=== PATIENT | male | born 1950 | race Hispanic/Latino ===

== ENCOUNTER → 2019-11-29 | Outpatient (CLI) | payer MEDICARE ==
--- NOTE | 2019-11-29 12:01 | Diagnostic Imaging Report ---
TECHNIQUE: Magnetic resonance imaging of the sacrum was performed WITHOUT injected contrast using standard departmental protocols. HISTORY: Sacral pain COMPARISON: None. FINDINGS: Bone and bone marrow: No focal or infiltrative bone marrow replacing abnormality. No fracture or osteonecrosis. Sacroiliac joint: Sacroiliac joint degenerative arthrosis. No sacroiliitis. Lower lumbar spine and nerve roots: Disc bulging and facet arthrosis L4-L5 and L5-S1 results in canal and foraminal stenosis. The exited nerve roots and proximal sciatic nerves unremarkable. Soft tissues: Soft tissues are unremarkable. 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 Refer to lumbar spine MRI report. Mild sacroiliac joint degenerative arthrosis. No sacroiliitis. Signed by: Dr. Nic Garcia M.D. on 11/29/2019 11:58 AM
--- NOTE | 2019-11-29 12:16 | Diagnostic Imaging Report ---
MRI SPINE LUMBAR WO HISTORY: Low back pain, numbness and cramping in left leg COMPARISON: None. TECHNIQUE: Sagittal T1, sagittal T2, sagittal STIR, axial T2, coronal T2, and axial proton density weighted images of the lumbar spine were obtained without contrast. DISCUSSION: Number of non-rib bearing lumbar vertebral bodies: 5. Alignment: Normal lordosis. No scoliosis. Vertebrae: No fractures, or neoplasm. Conus medullaris: Normal, ends at T12-L1. Cauda equina: No masses or arachnoiditis. Posterior paraspinal muscles: Well preserved. No signal abnormalities. Soft tissues: No signal abnormalities. Moderate multilevel disc degeneration is present. Nonspecific minimal multilevel inflammatory endplate changes are most prominent at L5-S1. T12-L1: Mild canal stenosis due to disc bulge and ligamentum flavum thickening. No significant foraminal stenosis. L1-L2: Mild canal stenosis due to disc bulge and ligamentum flavum thickening. No significant foraminal stenosis. L2-L3: There is mild retrolisthesis of L2 on L3. Mild canal stenosis due to disc bulge and ligamentum flavum thickening. No significant foraminal stenosis. L3-L4: There is mild retrolisthesis of L3 on L4. Mild to moderate canal stenosis due to disc bulge and ligamentum flavum thickening. Both lateral recesses are slightly effaced. Mild right and mild to moderate left foraminal stenoses due to disc bulge and facet arthrosis. L4-L5: There is mild retrolisthesis of L4 and L5. Moderate canal stenosis, due to asymmetric disc bulge towards the left and ligamentum flavum thickening, is accentuated by mild epidural lipomatosis. The left lateral recess is effaced and the descending left L4 nerve root is likely impinged. Moderate bilateral foraminal stenoses due to disc bulge and facet arthrosis. L5-S1: There is mild retrolisthesis of L5 on S1. Mild canal stenosis due to disc bulge and ligamentum flavum thickening. Moderate to severe bilateral foraminal stenoses due to disc bulge and facet arthrosis. IMPRESSION: 1. Moderate multilevel disc degeneration. Nonspecific minimal multilevel inflammatory endplate changes, most prominent at L5-S1. 2. Multilevel degenerative canal stenoses - moderate at L4-L5. The descending left L4 nerve root at L4-L5 is likely impinged by disc bulge and ligamentum flavum thickening. 3. Multilevel degenerative foraminal stenoses - moderate bilaterally at L4-L5 and moderate to severe bilaterally at L5-S1. Signed by: Dr. Donald Chen M.D. on 11/29/2019 12:13 PM
== END ==
LOC: MRI 09:42
PROVIDERS: ATTEND Internal Medicine
DX: M43.06 Spondylolysis, lumbar region (principal)
CPT/HCPCS: 72148; 72195

== ENCOUNTER → 2020-03-06 | Outpatient (CLI) | payer MEDICARE ==
--- NOTE | 2020-03-06 09:38 | Diagnostic Imaging Report ---
TECHNIQUE: Magnetic resonance imaging of the LEFT SHOULDER was performed WITHOUT injected contrast. COMPARISON: None available. HISTORY: Pain in left shoulder FINDINGS: MUSCLES AND TENDONS: Rotator Cuff: Tendons: Supraspinatus: Full-thickness near full width tear with questionable few fibers intact anteriorly. Retraction of torn fibers to the mid humeral head measuring approximately 3 cm. Infraspinatus: Tendinosis without discrete tear. Teres Minor: Intact Subscapularis: Intact Muscles: No focal muscle atrophy. Biceps Tendon: The long head of the biceps tendon is intact and within the intertubercular groove. Tendinosis along the intra-articular portion. GLENOHUMERAL JOINT: Glenoid Labrum: Degenerative tearing and fraying of the superior labrum with posterior extension. Articular Cartilage: High-grade/near full-thickness cartilage loss along the posterior aspect of the glenoid fossa with prominent subchondral cystic changes. Small glenohumeral joint effusion. AC JOINT AND ACROMION: Mild hypertrophic degenerative changes of the acromioclavicular joint. Lateral downsloping of the acromion with subacromial osseous spurring. Small amount of fluid in the subacromial/subdeltoid bursa. BONE: No fracture or acute osseous abnormality. No infiltrative bone marrow replacing signal abnormality. Degenerative subchondral cystic changes along the posterior aspect of the glenoid. SOFT TISSUES: Otherwise, the soft tissues appear unremarkable. IMPRESSION: Rotator cuff tendinosis with full-thickness near full width tear of the supraspinatus tendon and retraction of torn fibers to the mid humeral head. Moderate glenohumeral degenerative arthrosis including high-grade/near full-thickness cartilage loss along the posterior glenoid with prominent subchondral cystic changes and superior labral tearing with posterior extension. Intra-articular long head biceps tendinosis without discrete tear. Mild before meals degenerative changes with lateral downsloping of the acromion. Fluid in the subacromial/subdeltoid bursa, may represent bursitis or related to rotator cuff tear. Signed by: Dr. Jose L Ruiz M.D. on 03/06/2020 9:35 AM
== END ==
LOC: MRI 07:28
PROVIDERS: ATTEND Orthopaedic Surgery Sports Medicine
DX: M25.512 Pain in left shoulder (principal)

== ENCOUNTER 2021-09-28 20:50 | Emergency (ER) | payer MEDICARE ==
[~2021-09-28] VITALS: Ht 177.8 cm; Wt 90.7 kg
[2021-09-28] MEDS ORDERED: ONDANSETRON HCL INJ 2MG/ML 2ML 2 MG/ML VIAL IV STA (21:07)
[2021-09-28] MEDS ORDERED: SODIUM CHLORIDE 0.9% 1000ML 1,000 ML IV ONE (21:15)
[2021-09-28] MEDS ORDERED: Morphine 4mg INJECTION 4 MG/ML INJ IV ONE (21:15)
[2021-09-28 21:25] LABS: BASOPHILS # (AUTO) 0.1 (0.0-0.1); BASOPHILS % 0.5 % (0.0-1.0); EOSINOPHILS % 0.3 % (0.0-6.0); HEMATOCRIT 44.8 % (38.2-49.6); HEMOGLOBIN 14.1 g/dL (14.0-18.0); LYMPHOCYTES # (AUTO) 1.6 (1.0-3.2); LYMPHOCYTES % 11.1 % (18.0-39.1); MEAN CORPUSCULAR HEMOGLOBIN 29.7 pg (28-32); MEAN CORPUSCULAR HGB CONC 31.5 g/dL (31-35); MEAN CORPUSCULAR VOLUME 94.3 fL (81-99); MONOCYTES # (AUTO) 0.5 (0.2-0.8); MONOCYTES % 3.6 % (4.4-11.3); NEUTROPHILS # (AUTO) 11.8 (2.1-6.9); NEUTROPHILS % 84.1 % (38.7-80.0); PLATELET COUNT 207 x10e3/uL (140-360); RED BLOOD COUNT 4.75 x10e6/uL (4.3-5.7); RED CELL DISTRIBUTION WIDTH 14.5 % (11.7-14.4)
[2021-09-28 21:45] LABS: ALANINE AMINOTRANSFERASE 172 IU/L (0-55); ALBUMIN 3.9 g/dL (3.5-5.0); ALKALINE PHOSPHATASE 189 IU/L (40-150); BLOOD UREA NITROGEN 16 mg/dL (7-26); CALCIUM 8.6 mg/dL (8.4-10.2); CARBON DIOXIDE 25 mmol/L (22-29); CHLORIDE 106 mmol/L (98-107); CREATINE KINASE 231 IU/L (30-200); GLUCOSE 108 mg/dL (74-118); SODIUM 142 mmol/L (136-145)
[2021-09-28 22:04] LABS: BUN/CREATININE RATIO 14 (6-25); CREATININE, SERUM 1.25 mg/dL (0.72-1.25)
[2021-09-28] MEDS ORDERED: IOPAMIDOL 370 MG/ML 100 ML INFUS..BTL INJ ONE (22:40)
[2021-09-29] MEDS ORDERED: ACETAMINOPHEN 325 MG TAB PO ONE
[2021-09-29 00:06] VITALS: BP 5/10
[2021-09-29] MEDS ORDERED: ACETAMINOPHEN 325 MG TAB ONE (00:11)
== END 2021-09-29 00:21 | disposition home or self-care (01) ==
LOC: EDBD 21:11 → ER 21:11
DX: K57.92 Diverticulitis of intestine, part unspecified, without perforation or abscess without bleeding (principal); R19.7 Diarrhea, unspecified; G70.00 Myasthenia gravis without (acute) exacerbation; Z90.49 Acquired absence of other specified parts of digestive tract; Z85.9 Personal history of malignant neoplasm, unspecified
CPT/HCPCS: 36415; 74177; 80053; 82550; 82553; 83690; 84484; 85025; 93005; 99284; J2270; J2405; J7030; Q9967